=== PATIENT | female | born 1970 | race Caucasian/White ===

== ENCOUNTER 2020-07-16 11:17 | Emergency (ER) | payer OTHER, BC ==
[~2020-07-16] VITALS: Ht 167.6 cm; Wt 73.0 kg
[2020-07-16 15:49] LABS: HEMATOCRIT 36.8 % (37.0-47.0); HEMOGLOBIN 11.9 g/dl (12.0-16.0); IMMATURE GRANULOCYTES 1.2 % (0.0-5.0); MEAN CELL VOLUME 99.2 fL CALC (80.0-100.0); MEAN CORPUSCULAR HGB 32.1 pG CALC (26.0-32.0); MEAN CORPUSCULAR HGB CONC 32.3 g/dL CAL (32.0-36.0); NEUT# 4.9 thou/uL (2.00-7.15); RED BLOOD COUNT 3.71 mill/uL (4.20-5.60); RED CELL DISTRI WIDTH 12.7 % (11.5-15.5)
[2020-07-16 16:01] LABS: ALBUMIN 3.6 g/dL (3.2-5.0); ALKALINE PHOSPHATASE 101 u/l (38-126); ANION GAP 9 (6-22 (CALC)); BILIRUBIN, TOTAL 0.4 mg/dL (0.0-1.4); BUN 10 mg/dL (7-17); BUN/CREATININE RATIO 13 (12-20 (CALC)); CARBON DIOXIDE 27 mmol/l (22-30); CHLORIDE 105 mmol/l (95-108); CREATININE 0.8 mg/dL (0.5-1.0); GFR > 60 ML/MIN (>=60 (CALC)); GFR FOR AFR.AMER. > 60 ML/MIN (>=60 (CALC)); POTASSIUM 4.3 mmol/l (3.5-5.1); SGOT/AST 70 u/l (14-36); SODIUM 137 mmol/l (137-146); TOTAL PROTEIN 6.7 g/dL (6.3-8.2)
[2020-07-16] MEDS ORDERED: PERCOCET 5/325M1 TAB PO ×2 (16:39→17:52)
[2020-07-16] MEDS ORDERED: PREGABALIN50 MG (16:42)
[2020-07-16] MEDS ORDERED: CYCLOBENZAPR5 MG PO (16:43)
[2020-07-16] MEDS ORDERED: LEVAQUIN750 M1 PO (17:44)
[2020-07-16 18:14] VITALS: BP 143/88
== END 2020-07-16 18:25 | disposition home or self-care (01) | DRG 194 ==
LOC: ED 11:17
PROVIDERS: Family Medicine
PROC: 05HC33Z Insertion of Infusion Device into Left Basilic Vein, Percutaneous Approach (ICD-10-PCS; principal; 2020-07-16)
DX: J18.9 Pneumonia, unspecified organism (principal); J91.8 Pleural effusion in other conditions classified elsewhere; G89.18 Other acute postprocedural pain; R91.1 Solitary pulmonary nodule; S22.41XD Multiple fractures of ribs, right side, subsequent encounter for fracture with routine healing; V89.2XXD Person injured in unspecified motor-vehicle accident, traffic, subsequent encounter; B19.20 Unspecified viral hepatitis C without hepatic coma
CPT/HCPCS: Q9967

== ENCOUNTER 2024-02-19 09:01 | Emergency (ER) | payer SELFPAY ==
[~2024-02-19] VITALS: Ht 167.6 cm; Wt 64.0 kg
[2024-02-19] VITALS (7 sets, daily range): BP systolic 116–135; BP diastolic 77–87
[~2024-02-19 09:01] MED LIST: CYCLOBENZAPR5 MG PO; LEVAQUIN750 M1 PO; PERCOCET 5/325M1 TAB PO; PREGABALIN50 MG
[2024-02-19] MEDS ORDERED: NAPROXEN500 MG PO (10:07)
[2024-02-19] MEDS ORDERED: FLEXERIL5 M1 PO (10:07)
[2024-02-19] MEDS ORDERED: KETOROLAC TROMETHAMINE 30 MG/ML SDV IM ONE (10:15)
== END 2024-02-19 10:34 | disposition home or self-care (01) | DRG 556 ==
LOC: ED 09:01
DX: M25.532 Pain in left wrist (principal)

== ENCOUNTER 2024-03-02 09:42 | Emergency (ER) | payer SELFPAY ==
[~2024-03-02] VITALS: Ht 167.6 cm; Wt 63.5 kg
[~2024-03-02 09:42] MED LIST changes: +FLEXERIL5 M1 PO; +NAPROXEN500 MG PO
[2024-03-02] MEDS ORDERED: IPRATROPIUM-Albuterol 0.5MG-2.5MG/3 ML NEB ONE (10:15)
[2024-03-02] MEDS ORDERED: CVS MUCUS EXT1200 MG PO (11:29)
[2024-03-02] MEDS ORDERED: PREDNISONE20 MG PO (11:29)
[2024-03-02] MEDS ORDERED: IPRATROPIU0.5 MG/3 M IN (11:29)
[2024-03-02] MEDS ORDERED: TAM75CAP PO (11:29)
[2024-03-02] MEDS ORDERED: NEBULIZER IN (11:29)
[2024-03-02 11:32] VITALS: BP 122/78
== END 2024-03-02 11:48 | disposition home or self-care (01) | DRG 153 ==
LOC: ED 09:42
DX: J11.1 Influenza due to unidentified influenza virus with other respiratory manifestations (principal); Z20.822 Contact with and (suspected) exposure to COVID-19
CPT/HCPCS: J1100